=== PATIENT | female | born 1980 | race Caucasian/White ===

== ENCOUNTER → 2022-06-28 10:02 | Outpatient (CLI) | payer OTHER, SELFPAY ==
[2022-06-28 10:45] LABS: COVID19 -Nasal RAPID Negative (Negative)
== END ==
PROVIDERS: PCP Internal Medicine; Visit Provider Surgery
DX: Z01.812 Encounter for preprocedural laboratory examination (principal); Z20.822 Contact with and (suspected) exposure to COVID-19
CPT/HCPCS: 87635; C9803

== ENCOUNTER 2022-06-29 09:38 | Day surgery (SDC) | payer OTHER, SELFPAY ==
--- NOTE | 2022-06-29 | PATH_ITS ---
[facility] Accession Number: [id number] No. of containers..03 Tissue . 01 Material submitted: . PART A: stomach - ANTRUM PART B: cecum - CECAL POLYP PART C: colon - ASCENDING COLON POLYP . 01 Diagnosis: A. Antrum, Biopsy: Gastric antral mucosa with no diagnostic abnormality. No evidence of Helicobacter organisms on H/E stain. Negative for intestinal metaplasia. Negative for dysplasia or malignancy. . B. Cecal Polyp: Tubular adenoma. . C. Ascending Colon Polyp: Colonic mucosa with prominent benign lymphoid aggregate. Negative for serrated lesion, dysplasia or malignancy. MRV 07/03/2022 1250 Local . 01 Electronically signed: . Guille Mcdaniel MD, PhD, Pathologist NPI- [id number] . 01 Gross description: . The specimen is received in formalin in three parts, all labeled with the patient's name and . . Part A, designated antrum consists of three irregular vences soft tissue fragments ranging from 0.3 to 0.4 cm in greatest dimension. Submitted entirely in cassette A1. . Part B, designated cecal polyp, and consists of a single irregular vences soft tissue fragment measuring 0.7 cm in greatest dimension. Submitted entirely in cassette B1. . Part C, designated ascending colon polyp, consists of a single vences soft tissue fragment measuring 0.5 cm in greatest dimension. Submitted entirely in cassette C1. ([id number]) /MRV 06/30/2022 1709 Local . 01 Pathologist provided ICD-10: R10.11, D12.0 . 01 CPT . 246664, 881972, 247760 Specimen Comment: A courtesy copy of this report has been sent to [phone] Performed at: 01 [facility] [address], [place], [place] [id number] MD Jon Marroquin MD Phone: [phone]
[2022-06-29] MEDS: LACTATED RINGERS 1,000 ML 42 ML IV (09:51)
[2022-06-29 09:58] VITALS: BP 142/90; PULSE 90; RESP 16; TEMP 36.6; O2SAT 100; BMI 31.4
--- NOTE | 2022-06-29 11:24 | PM.HP.1 ---
History of Present Illness History of Present Illness Date Patient Seen: 06/29/22 Time Patient Seen: 11:24 Chief complaint: DX COLONOSCOPY/EGD Narrative: Rebeca is here for her EGD and colonoscopy. See office note from earlier this year. In summary she has GERD and a family history of colon cancer. She has met with the dietitians and she is had some improvement with her GERD symptoms. Patient History Medical History (Updated 04/19/22 @ 15:00 by Vitaliy Hinojosa MD) Migraine with aura, not intractable, without status migrainosus Obesity Palpitation Personal history of diseases of the blood and blood-forming organs and certain disorders involving the immune mechanism Polyneuropathy, unspecified Raynaud's phenomenon without gangrene Sleepwalking Family & Social History Social History: household members spouse Tobacco & Substance use: Smoking Status Former smoker alcohol intake current alcohol intake frequency a few times a week Substance Use Type does not use Meds Home Medications and Allergies Home Medications Medication Instructions Recorded Confirmed Type ferrous fumarate 18 mg iron tablet 18 mg PO DAILY 04/19/22 04/19/22 History ibuprofen 400 mg tablet 400 mg PO BID PRN Migraine Headache 04/19/22 04/19/22 History melatonin 1 mg tablet 1 mg PO BEDTIME PRN migraine 04/19/22 04/19/22 History omeprazole 20 mg capsule,delayed 20 mg PO DAILY 04/19/22 04/19/22 History release vitamin B complex 1 tab PO DAILY 04/19/22 04/19/22 History sodium,potassium,mag sulfates 17.5 See Rx Instructions PO .COMPLEX 06/28/22 06/28/22 Rx gram-3.13 gram-1.6 gram oral soln #354 mL (Suprep Bowel Prep Kit) ondansetron HCl 8 mg tablet 8 mg PO PRN PRN migraine 06/29/22 06/29/22 History ondansetron HCl 8 mg tablet mg 06/29/22 History Allergies Allergy/AdvReac Type Severity Reaction Status Date / Time latex Allergy Verified 06/29/22 09:53 droperidol AdvReac Mild Verified 06/29/22 09:53 Penicillins Allergy Severe Anaphylaxis Uncoded 06/29/22 09:53 Exam Vital Signs (past 8 hours): - 06/29/22 09:58 Temperature 97.8 F Pulse Rate 90 Respiratory Rate 16 Blood Pressure 142/90 H Pulse Oximetry 100 Oxygen Delivery Method Room Air Oxygen Delivery Method Room Air Const General: healthy appearing Assessment & Plan Assessment and plan (1) Family history of colon cancer: Status: Acute (2) RUQ pain: Status: Acute Plan 42-year-old woman here for EGD and colonoscopy. Reviewed the procedure and the risks and benefits and she would like to proceed. Time Spent With Patient Critical Care time: I spent a total of [] minutes of critical care time on this patient's care today; this time is exclusive of procedural time.
--- NOTE | 2022-06-29 12:12 | PM.OP.EC ---
Operative Date/Time/Diagnoses Date of procedure: 06/29/22 Time of procedure: 12:12 Pre-op diagnosis: GERD and family history of colon cancer Post-op diagnosis: same Procedure & Clinicians Study performed: EGD and colonoscopy Same procedure as scheduled: Yes Surgeon: Vitaliy Hinojosa Procedure Notes Procedure in detail: Surgeon: Vitaliy Hinojosa MD Anesthesia: Dr. Orozco Procedure in detail: A timeout was performed. A bite blocked was placed and monitors were attached to the patient. The patient was positioned in a left lateral decubitus position. Sedation was administered by Dr. Orozco. Once the patient was sedated the endoscope was inserted through the bite block and passed through the esophagus and stomach and into the duodenum. The duodenal mucosa appeared normal. We then withdrew the scope into the bulb which was normal.. We then withdrew the scope into the stomach. There was some mild antritis and random biopsies were taken from the antrum. The rest of the stomach appeared normal. The endoscope was retroflexed and and no hiatal hernia was seen. The endoscope was straightned and withdrawn into the esophagus. No abnormalities were noted. Findings: Mild antritis Next we repositioned the patient for a colonoscopy. A digital rectal exam was performed and was normal. The colonoscope was inserted and advanced to the cecum. The appendiceal orifice was identified and photographed. The scope was slowly withdrawn over greater than 6 minutes. There was a 5 mm cecal polyp removed with a cold snare and an 8 mm ascending colon polyp removed with a cold snare. The rest of the colon was normal. The scope was retroflexed in the rectum and some internal hemorrhoids were noted. Findings: 5 mm polyp in the cecum and 8 mm polyp in the ascending colon EBL: 5 mL Scope withdrawal time: 13 minutes Sedation minutes: 26 minutes Post-procedure Disposition: PACU
[2022-06-29 12:16] VITALS: BP 124/78; PULSE 84; RESP 18; TEMP 36.7; O2SAT 100
[2022-06-29 12:21] VITALS: BP 116/81; PULSE 78; RESP 16; O2SAT 100
[2022-06-29 12:26] VITALS: BP 122/78; PULSE 81; RESP 14; O2SAT 99
[2022-06-29 12:31] VITALS: BP 127/91; PULSE 73; RESP 18; TEMP 36.4; O2SAT 100
== END 2022-06-29 12:45 | disposition home or self-care (01) ==
PROVIDERS: PCP Internal Medicine; Referring Provider Surgery; Visit Provider Surgery
PROC: 0DJ08ZZ Inspection of Upper Intestinal Tract, Via Natural or Artificial Opening Endoscopic (ICD-10-PCS; CPT 43235; principal; 2022-06-29 10:45)
PROC: 0DJD8ZZ Inspection of Lower Intestinal Tract, Via Natural or Artificial Opening Endoscopic (ICD-10-PCS; CPT 45378; 2022-06-29 10:45)
DX: Z12.11 Encounter for screening for malignant neoplasm of colon (principal); Z80.0 Family history of malignant neoplasm of digestive organs; K21.9 Gastro-esophageal reflux disease without esophagitis; K29.50 Unspecified chronic gastritis without bleeding; K64.8 Other hemorrhoids; D12.0 Benign neoplasm of cecum
CPT/HCPCS: 45385; 43239